=== PATIENT | female | born 1955 | race Two or more races ===

== ENCOUNTER 2019-07-05 00:15 | Emergency (ER) | payer SELFPAY ==
[~2019-07-05] VITALS: Ht 170.2 cm; Wt 91.0 kg
[2019-07-05] MEDS ORDERED: SODIUM CHLORIDE 0.9% 1,000 ML IV ONE (01:54)
[2019-07-05] MEDS ORDERED: KETOROLAC 30MG/ML VIAL IV STA (01:54)
[2019-07-05 02:28] LABS: BASOPHILS % 0.4 % (0.0-2.0); EOSINOPHILS % 2.1 % (0.0-5.0); HEMATOCRIT. 37.9 % (36.0-48.0); HEMOGLOBIN. 12.7 g/dL (12.0-16.0); LYMPHOCYTES % 27.6 % (20.0-50.0); MEAN CORPUSCULAR HEMOGLOBIN 27.3 pg (28.0-32.0); MEAN CORPUSCULAR VOLUME 81.6 fL (81.0-99.0); MEAN PLATELET VOLUME 9.4 fl (7.4-10.4); MONOCYTES % 6.4 % (2.0-8.0); NEUTROPHILS % 63.5 % (40.0-76.0); PLATELET 223 x1000/uL (130-400); RED BLOOD CELL COUNT 4.65 mill/uL (4.2-5.4); RED CELL DISTRIBUTION WIDTH 13.7 % (11.6-14.6)
[2019-07-05 02:33] LABS: CHLORIDE 105 mEq/L (98-107)
[2019-07-05 05:03] VITALS: BP 148/67
== END 2019-07-05 05:05 | disposition home or self-care (01) ==
LOC: ER 00:15
DX: E11.40 Type 2 diabetes mellitus with diabetic neuropathy, unspecified (principal); R20.8 Other disturbances of skin sensation; M79.605 Pain in left leg; M79.604 Pain in right leg; M79.10 Myalgia, unspecified site
CPT/HCPCS: 36415; 80053; 82962; 85025; 93970; 96374; 99284; J1885; J7030